=== PATIENT | male | born 2005 | race Caucasian/White ===

== ENCOUNTER → 2023-04-12 07:27 | Outpatient (REF) | payer OTHER, SELFPAY ==
[2023-04-12 09:22] LABS: ALT (SGPT) 12 U/L (0-50); AST (SGOT) 18 U/L (17-59); Alkaline Phosphatase 55 U/L (38-126); Direct Bilirubin 0.4 mg/dl (0.0-0.4); Total Bilirubin 0.5 mg/dl (0.2-1.3); Total Protein 6.7 g/dl (6.3-8.2)
== END ==
LOC: REG 07:27
PROVIDERS: ATTENDING PHYSICIAN Nurse Practitioner Primary Care
DX: E34.9 Endocrine disorder, unspecified (principal)
CPT/HCPCS: 36415; 80076